=== PATIENT | male | born 1930 | race Caucasian/White ===

== ENCOUNTER 2018-09-12 08:17 | Inpatient (IN) | payer MEDICARE ==
[~2018-09-12] VITALS: Ht 177.8 cm; Wt 107.5 kg
[~2018-09-12 08:17] MED LIST: ACET325 PO; ALBU90OI INH; ALLO100 PO; ASPI81EC PO; ATOR20 PO; AZIT250 PO; Aspirin EC81 MG PO; CEPH500 PO; CETI5 PO; CHOL10002 PO; CLEM1.34 PO; FLONASE ALLERG9.9 ML; FLUSAL2505 IH; FOLBIC RF TABL1 EACH PO; GABA600 PO; GUAI600T33 PO; Keflex500 MG PO; LEVFLO500 PO; LEVO750 PO; LEVSOD75 PO; METR250 PO; Norco 5-325 Ta1 EACH PO; ONDA4ODT MM; PANT20 PO; PRED20 PO; PROM25S PR; Prednisone20 MG PO; SACC250C PO; SERT50 PO; TIOT18 IH; XARELTO15 MG PO
[2018-09-12 09:28] LABS: Source, Urine Clean Catch
[2018-09-12 09:37] LABS: Appearance, Urine Bloody (Clear); Bilirubin, Urine Neg (Neg); Blood, Urine 5+ (Neg); Color, Urine Red (P-Yellow); Glucose Qualitative, Urine Neg (Neg); Ketones, Urine 2+ (Neg); Leukocyte Esterase, Urine Neg (Neg); Nitrite, Urine Neg (Neg); Protein, Urine 4+ (Neg); Specific Gravity, Urine 1.015 (1.003-1.022); Urobilinogen, Urine NORM (Normal); pH, Urine 6.5 (5.0-8.0)
[2018-09-12 09:52] LABS: Bacteria Not Seen /hpf; Red Blood Cells, Urine TNTC /hpf (0-2); Squamous Epithelial Cells Not Seen /hpf (Few); White Blood Cells, Urine Rare /hpf (0-5)
[2018-09-12 09:59] LABS: Hemoglobin 14.4 g/dL (13.5-17.5); Mean Corpuscular HGB 31.7 pg (26.0-34.0); Mean Corpuscular HGB Conc 32.7 g/dL (31.5-36.5); Mean Corpuscular Volume 97 fL (80-100); Mean Platelet Volume 11.2 fL (9.1-12.4); NRBC ABSOLUTE 0.02 K/mm3 (0.00-0.02); NRBC Auto 0.1 /100 WBC (0.0-0.2); Platelet Count 135 K/mm3 (150-400); RDW Coefficient Variation 12.8 % (11.7-14.2); RDW Standard Deviation 45.9 fL (35.1-46.3); Red Blood Cell Count 4.54 M/mm3 (4.30-5.90); White Blood Cell Count 36.15 K/mm3 (4.00-11.30)
[2018-09-12 10:20] LABS: Albumin, Blood 4.1 g/dL (3.4-5.0); Albumin/Globulin Ratio 1.3 (0.8-1.8); Bilirubin, Total 0.8 mg/dL (0.1-1.0); Bun/Creatinine Ratio 14.8 (12.0-20.0); Calcium, Blood 9.2 mg/dL (8.5-10.1); Creatinine, Blood 1.42 mg/dL (0.60-1.20); Globulin, Blood 3.1 g/dL (2.2-4.0); Total Protein, Blood 7.2 g/dL (6.4-8.2)
[2018-09-12 10:40] LABS: BASOPHILS PERCENT MAN 0 % (0-2); EOSINOPHILS ABSOLUTE MAN 0.72 K/mm3 (0.00-0.68); EOSINOPHILS PERCENT MAN 2 % (0-6); LYMPHOCYTES ABSOLUTE MAN 23.13 K/mm3 (0.84-5.20); LYMPHOCYTES PERCENT MAN 64 % (21-46); MONOCYTES ABSOLUTE MAN 1.44 K/mm3 (0.16-1.47); MONOCYTES PERCENT MAN 4 % (4-13); NEUTROPHILS ABSOLUTE MAN 10.84 K/mm3 (1.96-9.15); SEG NEUTROPHILS PERCENT MAN 30 % (41-73); TOTAL CELLS COUNTED 100
[2018-09-12] MEDS ORDERED: [UNRECOGNIZED DRUG - CODE] PO (12:54)
[2018-09-12] MEDS ORDERED: [UNRECOGNIZED DRUG - CODE] PO (12:55)
[2018-09-12] MEDS ORDERED: 24HOUR ALLERGY10 MG PO (13:35)
[2018-09-12] MEDS ORDERED: ZOLP5 PO (13:41)
--- NOTE | 2018-09-12 17:22 | NUR ---
SUMMARY PT ADMITTED FROM THE ER FOR BLOOD IN THE URINE, PT WAS ABLE TO STAND AND WALK TO THE BATHROOM WITH A WALKER AND 1 ASSIST, PT WITH INCONTINENCE AND PULL UP HAS BEEN CHANGED, PT IS ALERT AND ORIENTED, [place], PLEASANT AND COOPERATIVE WITH CARE, ORIENTED PT TO THE ROOM AND THE CALL SYSTEM, PT HAS BEEN ABLE TO USE THE URINAL AT THE BEDSIDE AND HIS URINE APPEARS LESS BLOOD TINGED, VSS, NO ACUTE CHANGES, WILL CONT TO MONITOR
--- NOTE | 2018-09-13 04:27 | NUR ---
SHIFT SUMMARY PT AWAKE, TALKING ON PHONE DURING SHIFT REPORT. ADMITTED FOR HEMORRHAGIC CYSTITIS. PER SHIFT REPORT, PT'S URINE VERY BLOODY AND DRK RED WHILE AT HOME. PT VOIDED IN URINAL AFTER ADMISSION TO UNIT WITH URINE ONLY PINK TINGED. PT VOIDED AGAIN 3 TIMES RIGHT AFTER SHIFT REPORT WITH CL YELLOW. PT HAS NOT HAD ANY BLOOD TINGED URINE TO PRESENT THIS SHIFT. PT HAD MULTIPLE BED AND GOWN CHANGES THRU THE NIGHT. PT UNSTEADY AND HAS DIFFICULTY USING URINAL ON HIS OWN, BUT DOES NOT CALL FOR ASSIST UNTIL HE NEEDS CHANGED. ORTHO CONSULT CALLED YESTERDAY FOR R THUMB. NO C/O PAIN. DENIED FURTHER NEEDS. CALL LT IN REACH.
[2018-09-13 05:07] LABS: Hematocrit 39.3 % (37.0-53.0); Mean Corpuscular HGB 31.2 pg (26.0-34.0); Mean Corpuscular HGB Conc 33.1 g/dL (31.5-36.5); Mean Platelet Volume 11.7 fL (9.1-12.4); Platelet Count 114 K/mm3 (150-400); RDW Coefficient Variation 12.6 % (11.7-14.2); RDW Standard Deviation 43.6 fL (35.1-46.3); Red Blood Cell Count 4.17 M/mm3 (4.30-5.90); White Blood Cell Count 25.59 K/mm3 (4.00-11.30)
[2018-09-13 05:33] LABS: Mean Corpuscular Volume 94 fL (80-100)
[2018-09-13 06:04] LABS: Albumin, Blood 3.7 g/dL (3.4-5.0); Albumin/Globulin Ratio 1.4 (0.8-1.8); Bilirubin, Total 1.1 mg/dL (0.1-1.0); Bun/Creatinine Ratio 16.1 (12.0-20.0); Calcium, Blood 8.9 mg/dL (8.5-10.1); Creatinine, Blood 1.37 mg/dL (0.60-1.20); Globulin, Blood 2.7 g/dL (2.2-4.0); Magnesium, Blood 2.2 mg/dL (1.6-2.4); Total Protein, Blood 6.4 g/dL (6.4-8.2)
[2018-09-13 06:53] LABS: BASOPHILS PERCENT MAN 0 % (0-2); EOSINOPHILS PERCENT MAN 0 % (0-6); LYMPHOCYTES ABSOLUTE MAN 19.44 K/mm3 (0.84-5.20); LYMPHOCYTES PERCENT MAN 76 % (21-46); MONOCYTES ABSOLUTE MAN 0.25 K/mm3 (0.16-1.47); MONOCYTES PERCENT MAN 1 % (4-13); NEUTROPHILS ABSOLUTE MAN 5.88 K/mm3 (1.96-9.15); SEG NEUTROPHILS PERCENT MAN 23 % (41-73); TOTAL CELLS COUNTED 100
--- NOTE | 2018-09-13 16:16 | NUR ---
SHIFT SUMMARY 88 YR OLD MALE ADMITTED FOR HEMORRHAGIC CYSTITIS. DNR. NO BLOOD IN URINE THROUGHOUT SHIFT. PT HAD STOPPED TAKING HIS XARELTO 2 DAYS PREVIOUS TO ADMIT IN PREPARATION FOR A PROCEDURE. HOSPITALIST WILL RESTART PT ON HIS XARELTO TOMORROW. PACEMAKER PLACED IN APRIL OF THIS YEAR. URINE SPECIMEN SENT OR ANALYSIS. HE LIVES @ HOME. A&O X4. HX: AFIB, CLL, GOUT, COPD, PAD, GERD, ANANYA, NEUROPATHY, CKD. MAY DC TOMORROW. THERE IS A HEMATOMA ON HIS THUMB THAT IS IMPROVING.
[2018-09-14 04:49] LABS: Hematocrit 39.2 % (37.0-53.0); Hemoglobin 13.1 g/dL (13.5-17.5); Mean Corpuscular HGB 31.6 pg (26.0-34.0); Mean Corpuscular HGB Conc 33.4 g/dL (31.5-36.5); Mean Corpuscular Volume 95 fL (80-100); Mean Platelet Volume 11.2 fL (9.1-12.4); NRBC ABSOLUTE 0.02 K/mm3 (0.00-0.02); NRBC Auto 0.1 /100 WBC (0.0-0.2); Platelet Count 113 K/mm3 (150-400); RDW Coefficient Variation 12.5 % (11.7-14.2); Red Blood Cell Count 4.15 M/mm3 (4.30-5.90); White Blood Cell Count 26.42 K/mm3 (4.00-11.30)
[2018-09-14 05:11] LABS: Bun/Creatinine Ratio 16.9 (12.0-20.0); Calcium, Blood 8.7 mg/dL (8.5-10.1); Creatinine, Blood 1.24 mg/dL (0.60-1.20); Potassium, Blood 4.3 mmol/L (3.5-5.5)
--- NOTE | 2018-09-14 05:23 | NUR ---
PT HAD A FALL ON DAY SHIFT AND CONTINUES ON FALL PRECAUTIONS, URINE HAS CLEARED NO HEMATURIA, DENIES ACUTE DISTRESS, HAS SUPPORTIVE FAMILY. ASSISTS WITH ADLS AT HOME.
[2018-09-14 06:20] LABS: BASOPHILS PERCENT MAN 0 % (0-2); EOSINOPHILS ABSOLUTE MAN 0.26 K/mm3 (0.00-0.68); EOSINOPHILS PERCENT MAN 1 % (0-6); LYMPHOCYTES ABSOLUTE MAN 19.55 K/mm3 (0.84-5.20); LYMPHOCYTES PERCENT MAN 74 % (21-46); MONOCYTES ABSOLUTE MAN 1.32 K/mm3 (0.16-1.47); MONOCYTES PERCENT MAN 5 % (4-13); NEUTROPHILS ABSOLUTE MAN 5.28 K/mm3 (1.96-9.15); SEG NEUTROPHILS PERCENT MAN 20 % (41-73); TOTAL CELLS COUNTED 100
[2018-09-14] MEDS ORDERED: ASPI81CH PO (12:09)
[2018-09-14] MEDS ORDERED: CEFP200 PO (12:12)
[2018-09-14] MEDS ORDERED: ACET325 PO (12:12)
[2018-09-14] MEDS ORDERED: FAMO20 PO (12:13)
[2018-09-14] MEDS ORDERED: Miralax17 GM PO (12:13)
[2018-09-14] MEDS ORDERED: ONDA4 PO (12:13)
[2018-09-14] MEDS ORDERED: TAMS.4ER PO (12:14)
[2018-09-14] MEDS ORDERED: AZO CRANBERRY250 MG PO (12:15)
[2018-09-14] MEDS ORDERED: METO25 PO (12:16)
--- NOTE | 2018-09-14 12:40 | NUR ---
DISCHARGE NOTE MEDICATIONS FAXED TO PREFERED PHARMACY. IV DC'D WNL. PT PROVIDED WITH HARDCOPY AND VERBAL INSTRUCTIONS FOR DISCHARGE RE: DIAGNOSES, MEDICATIONS, FOLLOW UP APPOINTMENTS. PT HAD NO FURTHER QUESTIONS. GRAPHIC ARTS TECHNICIAN DRESSED PT AND GATHERED PERSONAL POSSESSIONS. PT ASSISTED TO PRIVATE VEHICLE AND FAMILY VIA WHEELCHAIR WITH HELP FROM GRAPHIC ARTS TECHNICIAN
== END 2018-09-14 12:38 | disposition home or self-care (01) | DRG 690 ==
LOC: ER 08:17 → MEDS 12:59
PROVIDERS: Physician Assistant; ADMIT Internal Medicine
DX: N30.91 Cystitis, unspecified with hematuria (principal); C91.10 Chronic lymphocytic leukemia of B-cell type not having achieved remission; I48.2 Chronic atrial fibrillation; I12.9 Hypertensive chronic kidney disease with stage 1 through stage 4 chronic kidney disease, or unspecified chronic kidney disease; N18.3 Chronic kidney disease, stage 3 (moderate); G47.33 Obstructive sleep apnea (adult) (pediatric); K21.9 Gastro-esophageal reflux disease without esophagitis; E03.9 Hypothyroidism, unspecified; G62.9 Polyneuropathy, unspecified; J44.9 Chronic obstructive pulmonary disease, unspecified; M10.9 Gout, unspecified; E78.5 Hyperlipidemia, unspecified; Z79.01 Long term (current) use of anticoagulants; S60.011A Contusion of right thumb without damage to nail, initial encounter; Z87.891 Personal history of nicotine dependence; Z66 Do not resuscitate; W26.8XXA Contact with other sharp object(s), not elsewhere classified, initial encounter
CPT/HCPCS: 36415; 74176; 80048; 80053; 81001; 83605; 83735; 85025; 87040; 87086; 96365; 99284-25; J0696; J7030

== ENCOUNTER 2019-02-12 06:15 | Emergency (ER) | payer MEDICARE ==
[~2019-02-12] VITALS: Ht 180.3 cm; Wt 108.9 kg
[~2019-02-12 06:15] MED LIST changes: +24HOUR ALLERGY10 MG PO; +ASPI81CH PO; +AZO CRANBERRY250 MG PO; +CEFP200 PO; +FAMO20 PO; +METO25 PO; +Miralax17 GM PO; +ONDA4 PO; +TAMS.4ER PO; +ZOLP5 PO; +[UNRECOGNIZED DRUG - CODE] PO; +[UNRECOGNIZED DRUG - CODE] PO
[2019-02-12] MEDS ORDERED: XARELTO15 MG (06:51)
[2019-02-12 06:56] LABS: Hematocrit 42.4 % (37.0-53.0); Hemoglobin 13.9 g/dL (13.5-17.5); Mean Corpuscular HGB 31.6 pg (26.0-34.0); Mean Corpuscular HGB Conc 32.8 g/dL (31.5-36.5); Mean Corpuscular Volume 96 fL (80-100); Mean Platelet Volume 11.3 fL (9.1-12.4); NRBC ABSOLUTE 0.02 K/mm3 (0.00-0.02); NRBC Auto 0.1 /100 WBC (0.0-0.2); Platelet Count 118 K/mm3 (150-400); RDW Coefficient Variation 13.1 % (11.7-14.2); RDW Standard Deviation 46.1 fL (35.1-46.3); White Blood Cell Count 25.24 K/mm3 (4.00-11.30)
[2019-02-12 07:06] LABS: Alanine Aminotransfer (ALT/SGP 23 U/L (12-78); Albumin, Blood 3.9 g/dL (3.4-5.0); Albumin/Globulin Ratio 1.2 (0.8-1.8); Alk Phos 92 U/L (50-136); Anion Gap 8 mmol/L (6-16); Aspartate Aminotrans (AST/SGOT 19 U/L (12-37); Blood Urea Nitrogen 24 mg/dL (8-24); Bun/Creatinine Ratio 16.4 (12.0-20.0); CO2, Blood 25 mmol/L (21-32); Calcium, Blood 8.7 mg/dL (8.5-10.1); Chloride, Blood 110 mmol/L (98-108); Creatinine, Blood 1.46 mg/dL (0.60-1.20); Globulin, Blood 3.2 g/dL (2.2-4.0); Glomerular Filtration Rate 49 (60-); Glucose, Blood 114 mg/dL (70-99); Magnesium, Blood 1.8 mg/dL (1.6-2.4); Potassium, Blood 4.4 mmol/L (3.5-5.5); Sodium, Blood 143 mmol/L (136-145); Total Protein, Blood 7.1 g/dL (6.4-8.2); Troponin I <0.015 ng/mL (0.000-0.040)
[2019-02-12 07:20] LABS: BAND PERCENT MAN 4 % (0-8); BASOPHILS PERCENT MAN 0 % (0-2); EOSINOPHILS PERCENT MAN 0 % (0-6); LYMPHOCYTES % ATYPICAL MANUAL 9 % (0-0); LYMPHOCYTES ABSOLUTE MAN 15.14 K/mm3 (0.84-5.20); LYMPHOCYTES PERCENT MAN 51 % (21-46); MONOCYTES ABSOLUTE MAN 2.01 K/mm3 (0.16-1.47); MONOCYTES PERCENT MAN 8 % (4-13); NEUTROPHILS ABSOLUTE MAN 8.07 K/mm3 (1.96-9.15); SEG NEUTROPHILS PERCENT MAN 28 % (41-73); TOTAL CELLS COUNTED 100
[2019-02-12 08:17] LABS: Source, Urine Voided
[2019-02-12 08:20] LABS: Bilirubin, Urine Neg (Neg); Blood, Urine Neg (Neg); Glucose Qualitative, Urine Neg (Neg); Ketones, Urine Neg (Neg); Leukocyte Esterase, Urine Neg (Neg); Nitrite, Urine Neg (Neg); Protein, Urine Neg (Neg); Specific Gravity, Urine 1.015 (1.003-1.022); Urobilinogen, Urine 1+ (Normal); pH, Urine 6.5 (5.0-8.0)
[2019-02-12 08:30] LABS: Appearance, Urine Clear (Clear); Color, Urine Yellow (P-Yellow)
== END 2019-02-12 10:50 | disposition home or self-care (01) ==
LOC: ER 06:15
PROVIDERS: Emergency Medicine
DX: C91.10 Chronic lymphocytic leukemia of B-cell type not having achieved remission (principal); R53.1 Weakness; R19.7 Diarrhea, unspecified; Z79.899 Other long term (current) drug therapy; Z79.82 Long term (current) use of aspirin; I48.20 Chronic atrial fibrillation, unspecified; J44.9 Chronic obstructive pulmonary disease, unspecified; K21.9 Gastro-esophageal reflux disease without esophagitis; N18.9 Chronic kidney disease, unspecified; E03.9 Hypothyroidism, unspecified; Z87.891 Personal history of nicotine dependence
CPT/HCPCS: 36415; 80053; 81003; 83735; 83880; 84484; 85025; 93005; 93010; 99285-25

== ENCOUNTER 2022-07-27 16:10 | Observation (INO) | payer OTHER ==
[~2022-07-27] VITALS: Ht 180.3 cm; Wt 96.0 kg
[~2022-07-27 16:10] MED LIST changes: +XARELTO15 MG
[2022-07-27 17:04] LABS: Bilirubin, Total 0.7 mg/dL (0.1-1.0); Calcium, Blood 8.1 mg/dL (8.5-10.1); Creatinine, Blood 0.83 mg/dL (0.60-1.20); Globulin, Blood 3.1 g/dL (2.2-4.0); Potassium, Blood 3.3 mmol/L (3.5-5.5); Total Protein, Blood 6.1 g/dL (6.4-8.2)
[2022-07-27 17:31] LABS: Source, Urine Clean Catch
[2022-07-27 17:35] LABS: Appearance, Urine Clear (Clear); Bilirubin, Urine Neg (Neg); Blood, Urine Neg (Neg); Color, Urine Amber (P-Yellow); Glucose Qualitative, Urine Neg (Neg); Ketones, Urine Neg (Neg); Leukocyte Esterase, Urine 1+ (Neg); Nitrite, Urine Neg (Neg); Protein, Urine 1+ (Neg); Urobilinogen, Urine 1+ (Normal)
[2022-07-27 17:48] LABS: Bacteria Few /hpf; Mucus Light (0-Heavy); Red Blood Cells, Urine 0-2 /hpf (0-2); Squamous Epithelial Cells Rare /hpf (Few); White Blood Cells, Urine 0-2 /hpf (0-5)
[2022-07-27 19:20] LABS: BASOPHILS ABSOLUTE AUTO 0.01 K/mm3 (0.00-0.23); BASOPHILS PERCENT AUTO 0 % (0-2); EOSINOPHILS PERCENT AUTO 1 % (0-6); IMMATURE GRAN ABSOLUTE AUTO 0.01 K/mm3 (0.00-0.10); IMMATURE GRAN PERCENT AUTO 0 % (0-1); LYMPHOCYTES ABSOLUTE AUTO 1.69 K/mm3 (0.84-5.20); LYMPHOCYTES PERCENT AUTO 24 % (21-46); MONOCYTES ABSOLUTE AUTO 0.61 K/mm3 (0.16-1.47); MONOCYTES PERCENT AUTO 9 % (4-13); Mean Corpuscular HGB Conc 32.4 g/dL (31.5-36.5); Mean Corpuscular Volume 87 fL (80-100); Mean Platelet Volume 11.3 fL (9.1-12.4); NEUTROPHILS ABSOLUTE AUTO 4.61 K/mm3 (1.96-9.15); NEUTROPHILS PERCENT AUTO 66 % (41-73); Platelet Count 194 K/mm3 (150-400); RDW Coefficient Variation 13.9 % (11.7-14.2); RDW Standard Deviation 44.2 fL (35.1-46.3); Red Blood Cell Count 3.93 M/mm3 (4.30-5.90); White Blood Cell Count 7.03 K/mm3 (4.00-11.30)
[2022-07-27 21:30] VITALS: BP 185/102
[2022-07-28 04:42] VITALS: BP 146/93
[2022-07-28 05:54] LABS: BASOPHILS ABSOLUTE AUTO 0.01 K/mm3 (0.00-0.23); BASOPHILS PERCENT AUTO 0 % (0-2); EOSINOPHILS ABSOLUTE AUTO 0.09 K/mm3 (0.00-0.68); EOSINOPHILS PERCENT AUTO 1 % (0-6); Hematocrit 33.7 % (37.0-53.0); Hemoglobin 10.9 g/dL (13.5-17.5); IMMATURE GRAN ABSOLUTE AUTO 0.02 K/mm3 (0.00-0.10); IMMATURE GRAN PERCENT AUTO 0 % (0-1); LYMPHOCYTES ABSOLUTE AUTO 1.73 K/mm3 (0.84-5.20); LYMPHOCYTES PERCENT AUTO 26 % (21-46); MONOCYTES ABSOLUTE AUTO 0.62 K/mm3 (0.16-1.47); MONOCYTES PERCENT AUTO 9 % (4-13); Mean Corpuscular HGB Conc 32.3 g/dL (31.5-36.5); Mean Corpuscular Volume 87 fL (80-100); Mean Platelet Volume 11.6 fL (9.1-12.4); NEUTROPHILS PERCENT AUTO 64 % (41-73); Platelet Count 211 K/mm3 (150-400); RDW Coefficient Variation 14.1 % (11.7-14.2); RDW Standard Deviation 43.9 fL (35.1-46.3); Red Blood Cell Count 3.89 M/mm3 (4.30-5.90); White Blood Cell Count 6.77 K/mm3 (4.00-11.30)
[2022-07-28 06:26] LABS: Albumin, Blood 3.1 g/dL (3.4-5.0); Bilirubin, Total 0.9 mg/dL (0.1-1.0); Bun/Creatinine Ratio 15.3 (12.0-20.0); Calcium, Blood 8.3 mg/dL (8.5-10.1); Creatinine, Blood 0.85 mg/dL (0.60-1.20); Magnesium, Blood 1.8 mg/dL (1.6-2.4); Potassium, Blood 3.3 mmol/L (3.5-5.5); Thyroid Stimulating Hormone 3.34 uIU/mL (0.360-4.800); Total Protein, Blood 6.1 g/dL (6.4-8.2)
--- NOTE | 2022-07-28 06:34 | NUR ---
AO, MIN ASSIST TO TRANSFER TO BED ON ADMISSION. NO MAJOR SKIN ISSUES. USES URINAL INDEPENDENTLY WITH OCCASIONAL SPILLS. SIGNIFICANT URINARY OUTPUT, GREATER THAN INTAKE. BIOPSYCHOLOGIST IN PLACE. TACHYCARDIC, AFIB DURING THE NIGHT. HYPERTENSIVE BUT IMPROVED DURING THE NIGHT.
[2022-07-28 07:58] VITALS: BP 140/97
[2022-07-28 15:21] VITALS: BP 136/76
[2022-07-28] MEDS ORDERED: LOSA25 PO (16:05)
[2022-07-28] MEDS ORDERED: POTA10T PO (16:06)
[2022-07-28] MEDS ORDERED: FURO20 PO (16:06)
--- NOTE | 2022-07-28 16:11 | NUR ---
Pt. is in bed and welcomes my visit. Spouse is present. Pt. is pleasant and anticipating eminent discharge. Facilitate a life review and establish rapport. Pt. displays evidence of good humor, engagement and awareness. Pryaed with Pt. and spouse. Both verbalized gratitude for the nursing care and the spiritual care they received at this hospital.
--- NOTE | 2022-07-28 17:06 | NUR ---
DISCHARGE PT A&OX4, AT BEDSIDE FOR DC DIRECTION. MEDS FAXED INTO [facility] PER PT REQUEST. PT VERBALIZED UNDERSTANDING OF DIRECTION. TOLERATING PO INTAKE WELL. PHYSICAL AND OCCUPATIONAL THERAPY AGREE PT SAFE TO DC HOME AT THIS TIME.
== END 2022-07-28 18:15 | disposition home or self-care (01) ==
LOC: ER 16:10 → MEDS 16:11
PROVIDERS: Student in an Organized Health Care Education/Training Program; ADMIT Student in an Organized Health Care Education/Training Program
DX: I50.33 Acute on chronic diastolic (congestive) heart failure (principal); E87.6 Hypokalemia; Z95.0 Presence of cardiac pacemaker; E03.9 Hypothyroidism, unspecified; N40.0 Benign prostatic hyperplasia without lower urinary tract symptoms; I48.91 Unspecified atrial fibrillation; Z79.01 Long term (current) use of anticoagulants; Z87.891 Personal history of nicotine dependence
CPT/HCPCS: 36415; 71045; 80053; 81001; 83735; 83880; 84443; 84484; 85025; 87086; 93005; 93010; 93306; 94762; 96361; 96374; 96376; 97116; 97162; 97166; 97530; 97535; 99285-25; A9270; G0378; J1940; J3480; J7050